=== PATIENT | female | born 1970 | race Caucasian/White ===

== ENCOUNTER → 2018-07-03 | Outpatient (CLI) | payer OTHER ==
--- NOTE | 2018-07-03 11:01 | US ---
EXAMINATION TYPE: US abdomen complete DATE OF EXAM: 07/03/2018 COMPARISON: NONE CLINICAL HISTORY: Swollen Abd R14.0. RLQ pain, hx of breast cancer EXAM MEASUREMENTS: Liver Length: 15.9 cm Gallbladder Wall: 0.2 cm CBD: 0.4 cm CHD: 0.5 cm Spleen: 12.4 cm Right Kidney: 11.0 x 4.2 x 3.9 cm Left Kidney: 1.1 x 5.1 x 6.0 cm Pancreas: Appears echogenic in appearance. Body and tail not visualized due to overlying bowel gas Liver: Echogenic, heterogenous and coarse Gallbladder: wnl Evidence for sonographic Philip's sign: neg CBD: wnl Spleen: Scattered nonshadowing echogenic foci seen Right Kidney: wnl Left Kidney: wnl Upper IVC: Not well visualized Abd Aorta: proximal not visualized due to overlying bowel gas. No AAA visualized in portions seen The liver is coarse and overall echo appearance. The intrahepatic portion of the IVC and proximal abd ominal aorta are within normal limits. There is no evidence of cholelithiasis. Common bile duct is unremarkable. The visualized portions of the pancreas are homogenous. The spleen is unremarkable. Kidneys are symmetric and free of hydronephrosis. No renal lesions are seen. IMPRESSION: 1. Suspect fatty hepatic infiltration versus diffuse hepatocellular disease. Correlate clinically.
--- NOTE | 2018-07-03 11:03 | US ---
EXAMINATION TYPE: US pelvis complete transvag DATE OF EXAM: 07/03/2018 COMPARISON: NONE CLINICAL HISTORY: lower abdominal pain R10.32. RLQ pain. Hx of breast cancer. Patient states she wa s on tamoxifen but isn't anymore-- currently on a different type of medication but doesn't remember w hat TECHNIQUE: Transvaginal (TV) and Transabdominal (TA) . Transabdominal sonographic images of the pel vis were acquired. Transvaginal sonographic images were medically necessary to better assess the fol lowing anatomy: Endometrium Date of LMP: EQUIPMENT ASSOCIATE, G0 EXAM MEASUREMENTS: Uterus: 10.6 x 4.9 x 3.9 cm Endometrial Stripe: 1.9 cm Right Ovary: 3.8 x 2.8 x 2.5 cm 1. Uterus: Anteverted wnl 2. Endometrium: Appears thickened and heterogenous 3. Right Ovary: Cystic appearing lesion seen with septation 3.0 x 2.6 x 2.2 cm 4. Left Ovary: Obscured by overlying bowel gas 5. Bilateral Adnexa: wnl 6. Posterior cul-de-sac: No free fluid Cervix- Appears heterogenous with multiple cystic appearing lesions IMPRESSION: 1. Endometrial thickening is nonspecific. 2. Complex lesion right ovary. Follow-up study in 6 weeks is advised.
== END ==
LOC: RADUSWWP 09:35
DX: N83.9 Noninflammatory disorder of ovary, fallopian tube and broad ligament, unspecified (principal); R93.89 Abnormal findings on diagnostic imaging of other specified body structures; R10.30 Lower abdominal pain, unspecified
CPT/HCPCS: 76700; 76830; 76856

== ENCOUNTER → 2018-07-04 | Outpatient (CLI) | payer BC ==
[2018-07-04 17:39] LABS: Basophils # (A) 0.1 k/uL (0-0.2); Basophils % (A) 1 %; Eosinophils # (A) 0.2 k/uL (0-0.7); Eosinophils % (A) 2 %; HGB 13.6 gm/dL (11.4-16.0); Lymphocytes # (A) 2.4 k/uL (1.0-4.8); Lymphocytes % (A) 27 %; MCH 27.2 pg (25.0-35.0); MCHC 31.6 g/dL (31.0-37.0); MCV 86.2 fL (80.0-100.0); Mean Platelet Volume 6.3; Monocytes # (A) 0.5 k/uL (0-1.0); Monocytes % (A) 6 %; Neutrophils # (A) 5.7 k/uL (1.3-7.7); Neutrophils % (A) 63 %; Platelet Count 324 k/uL (150-450); RBC 4.98 m/uL (3.80-5.40); RDW 14.3 % (11.5-15.5); WBC 9.1 k/uL (3.8-10.6)
[2018-07-04 22:53] LABS: Albumin 4.6 g/dL (3.80-4.90); Anion Gap 8.7 mmol/L (4.00-12.00); Calcium 9.5 mg/dL (8.7-10.3); Carbon Dioxide 27.3 mmol/L (21.6-31.8); Globulin 2.3 g/dL (1.6-3.3); LDL Cholesterol,Calculated 101.2 mg/dL (0.0-131.0); Potassium 4.4 mmol/L (3.5-5.5); Total Bilirubin 0.5 mg/dL (0.2-1.2); Total Protein 6.9 g/dL (6.2-8.2); VLDL Calculation 20.8 mg/dL (5.00-40.00)
[2018-07-04 23:04] LABS: T4, Free (Free Thyroxine) 1.3 ng/dL (0.80-1.80)
== END | disposition home or self-care (01) ==
LOC: LABWHC1 17:02
DX: Z00.00 Encounter for general adult medical examination without abnormal findings (principal)
CPT/HCPCS: 36415; 80053; 80061; 84439; 84443; 85025

== ENCOUNTER → 2018-08-19 | Outpatient (CLI) | payer BC ==
--- NOTE | 2018-08-20 11:51 | US ---
EXAMINATION TYPE: US pelvic complete DATE OF EXAM: 08/19/2018 COMPARISON: US CLINICAL HISTORY: N93.9 Abnormal uterine and vaginal bleeding, unspe. Patient stated had AUB in July TECHNIQUE: Transvaginal (TV) and Transabdominal (TA) . Transabdominal sonographic images of the pel vis were acquired. Transvaginal sonographic images were medically necessary to better assess the fol lowing anatomy: endometrium and ovaries Date of LMP: 07/17/2018 EXAM MEASUREMENTS: Uterus: 8.8 x 4.8 x 4.3 cm Endometrial Stripe: 0.8 cm Right Ovary: 1.7 x 2.1 x 1.8 cm Left Ovary: 1.7 x 1.9 x 2.3 cm 1. Uterus: Anteverted; multiple Nabothian cysts in cervix with largest =1.0 x 0.9 x 0.9cm. 2. Endometrium: thickness wnl for day 33LMP 3. Right Ovary: small follicles 4. Left Ovary: small follicles 5. Bilateral Adnexa: wnl 6. Posterior cul-de-sac: wnl IMPRESSION: 1. Normal pelvic ultrasound
== END | disposition home or self-care (01) ==
LOC: RADUSWWP 16:18
PROVIDERS: ATTEND Physician Assistant Medical
DX: N93.9 Abnormal uterine and vaginal bleeding, unspecified (principal)
CPT/HCPCS: 76830; 76856

== ENCOUNTER → 2018-09-12 | Outpatient (CLI) | payer BC ==
--- NOTE | 2018-09-13 07:49 | XR ---
EXAMINATION TYPE: XR chest 2V DATE OF EXAM: 09/12/2018 COMPARISON: None INDICATION: Z71.3G 43.909 TECHNIQUE: Frontal and lateral views of the chest are obtained. FINDINGS: The heart size is normal. The pulmonary vasculature is normal. Some minimal infiltrate or density is within the right mid lung. Correlate for atelectasis. Early pne umonia could be considered. Other etiologies are not excluded. Follow-up is recommended.. IMPRESSION: 1. Mild density within the right mid lung most likely on the basis of atelectasis. Other etiologies a re not excluded. Follow-up to clearing is recommended.
== END | disposition home or self-care (01) ==
LOC: RADXRMAIN 16:14
PROVIDERS: ATTEND Internal Medicine Hematology & Oncology
DX: G43.909 Migraine, unspecified, not intractable, without status migrainosus (principal); Z71.3 Dietary counseling and surveillance
CPT/HCPCS: 71046

== ENCOUNTER → 2019-04-18 | Outpatient (CLI) | payer OTHER ==
--- NOTE | 2019-04-18 18:28 | BD ---
EXAMINATION TYPE: Axial Bone Density DATE OF EXAM: 04/18/2019 COMPARISON: NONE CLINICAL HISTORY: 49 YR OLD FEMALE....ICD-10 CODE: Z79.890 POST MENOPAUSAL, C50.112 BREAST CANCER Height: 65.4 Weight: 223 FRAX RISK QUESTIONS: Secondary Osteoporosis: YES 3. Menopause before 45: YES RISK FACTORS HISTORY OF: Surgery to LT HIP FOR BIOPSY OF OSTEOMYELITIS SITE When: AT AGE 13 Active: YES Postmenopausal woman: AT AGE 36 Hyperparathyroidism: NO Adrenal Insufficiency: NO MEDICATIONS: Additional Medications: SLEEPING PILL, ANTI-HORMONE FOR BR CA, HX CHEMO AND RADIATION, BILAT MASTECTO MY, Additional History: HX OF BREAST CANCER, EXAM MEASUREMENTS: Bone mineral densitometry was performed using the [employer] System. Bone mineral density as measured about the Lumbar spine is: ----- L1-L4(G/cm2): 1.018 T Score Values are as follows: ----- L1: -0.8 ----- L2: -1.7 ----- L3: -1.2 ----- L4: -1.8 ----- L1-L4: -1.4 Bone mineral density FIRST DEXA SCAN.......BASELINE STUDY Bone mineral density about the R hip (g/cm2): 1.004 T Score values are as follows: -----R Neck: -0.5 -----R Total: 0.0 Bone mineral density FIRST DEXA SCAN......BASELINE STUDY FRAX%s: THERE IS A 2.7% CHANCE FOR A MAJOR OSTEOPOROTIC FX AND A 0.1% FOR HIP.....PROBABILITY FOR F X IN 10 YRS TIME IMPRESSION: Osteopenia (T Score between -2.5 and -1). There is slightly increased risk of fracture and the patient may be considered for treatment. Re-Screen 2-5 years. NOTE: T-SCORE=SD OF THE YOUNG ADULT MEAN.
== END | disposition home or self-care (01) ==
LOC: RADBDWWP 14:05
PROVIDERS: ATTEND Internal Medicine Hematology & Oncology
DX: M85.80 Other specified disorders of bone density and structure, unspecified site (principal); Z79.890 Hormone replacement therapy
CPT/HCPCS: 77080

== ENCOUNTER → 2022-03-13 | Outpatient (CLI) | payer OTHER ==
--- NOTE | 2022-03-14 07:29 | BD ---
EXAMINATION TYPE: Axial Bone Density DATE OF EXAM: 03/13/2022 COMPARISON: Prior DEXA bone scan 2019 CLINICAL HISTORY: 52 years year old Female. ICD-10 CODE: C50.112 Breast cancer Height: 5 FT 5 1/2 IN Weight: 221 FRAX RISK QUESTIONS: Alcohol (3 or more units per day): NO Family History (Parent hip fracture): NO Glucocorticoids (More than 3mos): NO (Ex: prednisone, prednisolone, methylprednisolone, dexamethasone, and hydrocortisone). History of Fracture in Adulthood: YES Secondary Osteoporosis: 1. Type 1 Diabetes: NO 2. Hyperthyroidism: NO 3. Menopause before 45: YES 4. Malnutrition: NO 5. Chronic liver disease: NO Rheumatoid Arthritis: NO Current Tobacco Use: NO RISK FACTORS HISTORY OF: Surgery to Spine/Hip(right/left)/Wrist (right/left): LEFT HIP BX OSTEOMYELITIS When: AGE 13 Family History of Osteoporosis: NO Active: NO Diet low in dairy products/other sources of calcium: NO Postmenopausal woman: YES Take estrogen and/or progesterone medications: NO Lost more than 2 inches in height since high school: NO Frequent falls: YES Poor Health: GOOD Hyperparathyroidism: NO Adrenal Insufficiency: NO MEDICATIONS: Additional Medications: SLEEP AID, BLOOD PRESSURE MEDS, ALLERGY MEDS ,EYE DROPS Additional History: BREAST CANCER 2011, DAVID MASTECTOMY ,CHEMO AND RADIATION , HORMONE ZAIDA FOR TOT AL OF 10 YEARS EXAM MEASUREMENTS: Bone mineral densitometry was performed using the [employer] System. Bone mineral density as measured about the Lumbar spine is: ----- L1-L4(G/cm2): 0.994 T Score Values are as follows: ----- L1: -2.0 ----- L2: -1.3 ----- L3: -1.7 ----- L4: -1.5 ----- L1-L4: -1.5 Bone mineral density has: INCREASED 0.8 % since study of: 2019 Bone mineral density about the R hip (g/cm2): 0.888 Bone mineral density about the L hip (g/cm2): 0.933 T Score values are as follows: -----R Neck: -1.1 -----L Neck: -0.8 -----R Total: -0.6 -----L Total: 0.0 Bone mineral density has: NO CHANGE % since study of: 2020 FRAX%s: The graph provided illustrates a 2.4 % chance for a major osteoporotic fx and a 0.2 % chance for the hips probability for fx in 10 years time. IMPRESSION: Osteopenia (T Score between -2.5 and -1) remains present. There is slightly increased risk of fracture and the patient may be considered for treatment. Re-Screen 2-5 years. NOTE: T-SCORE=SD OF THE YOUNG ADULT MEAN.
== END | disposition home or self-care (01) ==
LOC: RADBDWWP 07:48
PROVIDERS: ATTEND Internal Medicine Hematology & Oncology
DX: C50.112 Malignant neoplasm of central portion of left female breast (principal); M85.89 Other specified disorders of bone density and structure, multiple sites; G43.909 Migraine, unspecified, not intractable, without status migrainosus; Z71.3 Dietary counseling and surveillance
CPT/HCPCS: 77080

== ENCOUNTER → 2022-06-27 | Outpatient (CLI) | payer OTHER ==
--- NOTE | 2022-06-27 12:35 | CT ---
EXAMINATION TYPE: CT chest w con CT DLP: 562.2 mGycm, Automated exposure control for dose reduction was used. DATE OF EXAM: 06/27/2022 11:49 AM COMPARISON: Chest radiograph from 09/13/2018. CLINICAL INDICATION:Female, 52 years old with history of R0602; Trouble breathing, history of bilater al mastectomy-breast cancer TECHNIQUE: Multiple axial images were obtained through the chest. Sagittal and coronal reformats were created for review. Contrast used:70 mL of Isovue 300 with IV Contrast Oral contrast used: none. FINDINGS: LUNGS/ PLEURA: Right lower lobe calcified granulomas. No evidence focal consolidation, pneumothorax o r pleural effusion. No suspicious pulmonary nodules. AIRWAY: Patent and unremarkable. HEART: Size within normal limits. MEDIASTINUM: No gross evidence of adenopathy. Partially calcified lymph nodes in the mediastinum. VASCULATURE: No aortic aneurysm. MUSCULOSKELETAL: No acute osseous abnormalities SOFT TISSUES/LYMPH NODES: Left breast implant which appears grossly intact with capsular calcificatio ns. Postsurgical changes to the right breast. LOWER NECK: UPPER ABDOMEN: Diffuse low-attenuation to the liver parenchyma. Scattered calcified granulomas. IMPRESSION: 1. Granulomatous disease without evidence for new or suspicious pulmonary nodule. 2. No acute thoracic process.
== END | disposition home or self-care (01) ==
LOC: RADCTMAIN 11:05
DX: D71 Functional disorders of polymorphonuclear neutrophils (principal); Z90.13 Acquired absence of bilateral breasts and nipples; R06.02 Shortness of breath; Z85.3 Personal history of malignant neoplasm of breast
CPT/HCPCS: 71260; Q9967

== ENCOUNTER → 2022-11-01 | Outpatient (CLI) | payer OTHER ==
--- NOTE | 2022-11-01 10:39 | US ---
EXAMINATION TYPE: US abdomen complete DATE OF EXAM: 11/01/2022 COMPARISON: NONE CLINICAL INDICATION: Female, 52 years old with history of R10.10; pain TECHNIQUE: Multiple sonographic images of the abdomen are obtained. FINDINGS: EXAM MEASUREMENTS: Liver Length: 16.8 cm Gallbladder Wall: .2 cm CBD: .6 cm Spleen: 13.1 cm Right Kidney: 11.5 x 4.3 x 5.4 cm Left Kidney: 12.0 x 4.9 x 4.1 cm CLASSIFICATION ANALYST NOTES: Pancreas: Obscured by bowel gas Liver: Increased attenuation Gallbladder: No stones seen Evidence for sonographic Philip's sign: No CBD: wnl Spleen: Granulomas visualized. Right Kidney: No hydronephrosis or masses seen Left Kidney: No hydronephrosis or masses seen Upper IVC: wnl Abd Aorta: wnl There is moderate fatty infiltration to the liver. Hepatomegaly is present. IMPRESSION: 1. Hepatomegaly with moderate fatty infiltration of the liver
== END | disposition home or self-care (01) ==
LOC: RADUSWWP 08:50
DX: K76.0 Fatty (change of) liver, not elsewhere classified (principal); R16.0 Hepatomegaly, not elsewhere classified; R10.10 Upper abdominal pain, unspecified
CPT/HCPCS: 76700

== ENCOUNTER → 2023-02-27 | Outpatient (CLI) | payer OTHER ==
--- NOTE | 2023-02-27 11:24 | CA ---
Transthoracic Echo Report Name: Angeline Mcmanus Age: 52 Gender: F : 1970 Exam Date: 02/27/2023 08:33 Exam Location: [place] [facility] Ht (in): 65 Wt (lb): 226 Ordering Physician: [facility], Clinic Attending/Referring Phys: [employer] Maru Hudson RDCS Procedure CPT: Indications: R07.80 CHEST PAIN Cardiac Hx: Technical Quality: Fair Contrast 1: Total Dose (mL): Contrast 2: Total Dose (mL): MEASUREMENTS (Male / Female) Normal Values 2D ECHO LV Diastolic Diameter PLAX 3.7 cm 4.2 - 5.9 / 3.9 - 5.3 cm LV Systolic Diameter PLAX 2.2 cm IVS Diastolic Thickness 1.1 cm 0.6 - 1.0 / 0.6 - 0.9 cm LVPW Diastolic Thickness 1.2 cm 0.6 - 1.0 / 0.6 - 0.9 cm LV Relative Wall Thickness 0.6 RV Internal Dim ED PLAX 3.7 cm LA Volume 56.2 cm??? 18 - 58 / 22 - 52 cm??? LA Volume Index 25.4 cm???/m??? 16 - 28 cm???/m??? M-MODE Aortic Root Diameter MM 2.6 cm LA Systolic Diameter MM 3.8 cm LA Ao Ratio MM 1.4 AV Cusp Separation MM 1.9 cm DOPPLER AV Peak Velocity 144.3 cm/s AV Peak Gradient 8.3 mmHg AV Mean Velocity 102.2 cm/s AV Mean Gradient 4.7 mmHg AV Velocity Time Integral 31.5 cm LVOT Peak Velocity 102.9 cm/s LVOT Peak Gradient 4.2 mmHg LVOT Velocity Time Integral 21.9 cm MV Area PHT 3.3 cm??? Mitral E Point Velocity 89.2 cm/s Mitral A Point Velocity 67.7 cm/s Mitral E to A Ratio 1.3 MV Deceleration Time 227.6 ms MV E' Velocity 8.1 cm/s Mitral E to MV E' Ratio 11.0 TR Peak Velocity 214.9 cm/s TR Peak Gradient 18.5 mmHg Right Ventricular Systolic Press 22.7 mmHg FINDINGS Left Ventricle Mildly increased left ventricular wall thickness. Left ventricular cavity size normal. Normal left ventricular systolic function with no obvious regional wall motion abnormalities. Left ventricular ejection fraction is estimated at 55-60 %. Right Ventricle Mild right ventricular dilatation. Right ventricular systolic pressure within normal limits. Right Atrium Normal right atrial size. Left Atrium Mildly increased left atrial volume. Mitral Valve Structurally normal mitral valve. Mild mitral regurgitation. Aortic Valve Trileaflet aortic valve. No aortic valve stenosis or regurgitation. Tricuspid Valve Structurally normal tricuspid valve. Mild tricuspid regurgitation. Pulmonic Valve Structurally normal pulmonic valve. Trace pulmonic regurgitation. Pericardium No pericardial effusion. Aorta Normal size aortic root and proximal ascending aorta. CONCLUSIONS Normal LV size and systolic function. Mild mitral and tricuspid regurgitation. No pericardial effusion no pulmonary hypertension Previewed by: Dr. Danii Kruse MD (Electronically Signed) Final Date: 27 February 2023 11:23
--- NOTE | 2023-02-27 11:56 | CA ---
Exercise Nuclear Stress Test Report Name: Angeline Mcmanus Exam Date: 02/27/2023 11:02 Exam Location: [place] [facility] Ht (in): 65 Wt (lb): 226 BSA: 2.08 Ordering Phys: [facility], Clinic Referring Phys: [facility],, Technologist: NATHANIEL,, Age: 52 Gender: F : 1970 Procedure CPT: Indications: R07.80 CHEST PAIN ICD-10 Codes: Patient History: Chest Pain Medications: Meds past 24 hrs: Pretest Chest Pain: STRESS TEST Shadi Protocol Exercise Duration (min:sec): 07:[address] Depressions (mm): Angina Score: Duarte Score: Resting HR (bpm): 51 Peak HR (bpm): 145 Resting BP (mmHg): 116 / 71 Peak BP (mmHg): 162 / 79 MPHR: 170 Target HR: 145 % MPHR: 85 METS: 9.1 Total Dose: Peak Dose: Atropine: Double Product: 52221 BP Response: Stress Termination: Reached target heart rate Stress Symptoms: Dizziness at peak exercise. Stress Summary: ECG ANALYSIS Resting ECG: Stress ECG: CONCLUSIONS Baseline EKG revealed a normal sinus rhythm without significant ST-T changes. Patient walked on a standard Shadi protocol for a total duration of 7 minutes 44 seconds and achieved a maximum heart rate of 145 bpm. Resting heart rate was 51 bpm. Resting blood pressure was 116/71 and peak blood pressure was 162/79. Patient did not have any angina. She complained of some dizziness at the end. By EKG criteria this is a negative stress test without any evidence of ischemic changes. No anginal symptoms. Negative stress test with fair exercise capacity area the nuclear scan results which are more pertinent will be reported by the radiologist Dr. Danii Kruse MD (Electronically Signed) Final Date: 27 February 2023 11:55
--- NOTE | 2023-02-27 13:17 | NM ---
EXAMINATION TYPE: NM stress cardiolite complete DATE OF EXAM: 02/27/2023 COMPARISON: NONE CLINICAL INDICATION: Female, 52 years old with history of R07.80 CHEST PAIN; TECHNIQUE: After the intravenous administration of 10.4 mCi Tc 99m Sestamibi - Rest images obtained 100 minutes post injection. The patient exercised using a BOBBI protocol and 1 minute prior to peak exercise was injected with 25.8 mCi Tc 99m Sestamibi - Stress images obtained 30 minutes post inject ion. FINDINGS: Targeted heart rate was achieved during performance of the study. Review of stress and rest SPECT anders ges demonstrates no distinct perfusion abnormality. Gated analysis shows normal wall motion with an estimated left ventricular ejection fraction of 60 %. IMPRESSION: No scintigraphic evidence for reversible ischemia
== END | disposition home or self-care (01) ==
LOC: RADNMMAIN 07:53
DX: I08.1 Rheumatic disorders of both mitral and tricuspid valves (principal); R06.00 Dyspnea, unspecified; R07.89 Other chest pain
CPT/HCPCS: 93017; 93306; 78452; A9500

== ENCOUNTER → 2023-05-15 | Outpatient (CLI) | payer OTHER ==
--- NOTE | 2023-05-15 17:02 | P.SLEEP ---
History of Present Illness H&P Date: 05/15/23 This is a 53-year-old female patient with known history of chronic insomnia. The patient has been treated through psychiatry department and [facility]. Over the years, the patient has been maintained on Ambien 10 mg and this medication has helped her with sleep induction and maintenance. She has done extremely well with the patient is able to fall asleep without any major issues. However, she has been having some ongoing difficulties waking up not rested and feeling sleepy and tired during the day. Her current Merom score is at 5. For that reason, the patient was referred to me for sleep apnea evaluation as the patient has history of snoring and she carries a body mass index of 38.0. She has a . She has served in the [employer] in the [employer] and she was discharged back in 2013. 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 She has not been sure if she quits breathing at night. She sleeps alone. However she admits that she does not feel rested when she gets up in the morning. No grinding of the teeth. Denies waking up choking and gasping for air. No restlessness in lower extremities. No significant anxiety or depression or night terrors. The patient has been going to bed at around 10 PM and she gets up between 6 and 6:30 AM in the morning during weekdays. On weekends, she gets out of bed at around 7:30 AM. She drinks 1 to 2 cup of coffee in the morning. No alcoholism. No substance abuse. No head trauma. No history of any motor vehicle accidents because of feeling drowsy or sleepy. She sleeps on her side. She reads books which calms her down and she consider this to be sleep promoting. Past medical history includes chronic insomnia, hypertension, obesity, osteoarthritis, median nerve injury, tinnitus Past surgical history includes bilateral mastectomies and insertion of removal of breast implants Medication includes Ambien 10 mg at nighttime and atenolol 75 mg p.o. daily Drug allergies none known Social history no history of smoking, alcohol consumption or substance abuse Family history is negative for sleep breathing disorder. Hypertension runs in her family also breast cancer. Review of systems. 14 point review of system was done. Essentially negative other than things mentioned above in history of present illness. The patient has been able to maintain a weight of 230 pounds over the past 5 to 10 years at least. No history of any heartburn overnight. No shortness of breath or chest pain. No restlessness in lower extremities. No sleepwalking or sleep talking. No grinding. No nocturia. No anxiety or depression BP is 129/88 with a pulse of 80 respiration of 18 with a temperature 98.2 and a pulse ox of 97% on room air. Height is 5 5. Weight is 230 pounds and a body mass index is 38 with an Merom score of 5 General appearance the patient is calm and comfortable no acute distress. The patient has a Mallampati class IV. No overbite. The patient appeared well nourished and normally developed. Vital signs as documented. Head exam is unremarkable. No scleral icterus or corneal arcus noted. Neck is without jugular venous distension, thyromegaly, or carotid bruits. Carotid upstrokes are brisk bilaterally. Lungs are clear to auscultation and percussion. Cardiac exam reveals the PMI to be normally sized and situated. Rhythm is regular. First and second heart sounds normal. No murmurs, rubs or gallops. Abdominal exam reveals normal bowel sounds, no masses, no organomegaly and no aortic enlargement. Extremities are nonedematous and both femoral and pedal pulses are normal. Examination of the skin revealed no evidence of significant rashes, suspicious appearing nevi or other concerning lesions. Neurologically, the patient is awake and alert and the patient does not have any focal neurological deficit. Cranial nerves are essentially intact. Assessment Chronic insomnia adequately managed with Ambien 10 mg at bedtime. The patient is also implementing sleep restriction and good sleep hygiene measures to improve her chronic insomnia. Feeling sleepy and unrested following a good 6 hours of sleep. Mild degree of hypersomnia. Rule out underlying obstructive sleep apnea as the patient has history of snoring. Obesity with a BMI of 38.0 Hypertension Osteoarthritis History of median nerve injury History of tinnitus Plan Continue Ambien 10 mg at bedtime. Implement good sleep hygiene measures. Maintain regular sleep schedule. Encourage weight loss. Proceed with a home sleep study to screen this patient for the possibility of obstructive sleep apnea and decide if further treatment is needed. Will continue to follow. Sleep Note - Sleep Note Sleep Note: Temperature: Pulse Rate: Respiratory Rate: Blood Pressure: SpO2: Height: Weight: BMI: Neck Circumference:
== END ==
LOC: 3 N SLEEP 15:41
PROVIDERS: ATTEND Internal Medicine Critical Care Medicine
DX: F51.04 Psychophysiologic insomnia (principal); G47.10 Hypersomnia, unspecified; E66.9 Obesity, unspecified; I10 Essential (primary) hypertension; M19.90 Unspecified osteoarthritis, unspecified site; R06.83 Snoring; Z68.38 Body mass index [BMI] 38.0-38.9, adult; Z87.828 Personal history of other (healed) physical injury and trauma; Z86.69 Personal history of other diseases of the nervous system and sense organs
CPT/HCPCS: 99211

== ENCOUNTER 2023-06-19 07:19 | Day surgery (SDC) | payer OTHER ==
[2023-06-18 09:09] VITALS: BMI 36.4
[2023-06-19 07:57] VITALS: RESP 18; TEMP 97.1
[2023-06-19] MEDS: LIDOCAINE 1% (10MG/ML) FOR IV START INTRADERMA PRN (08:03)
[2023-06-19] MEDS: LACTATED RINGERS 1,000 ML IV SCH (08:03)
[2023-06-19] MEDS ORDERED: fentaNYL (PF) 50 MCG/ML 2 ML AMP ONE (08:17)
[2023-06-19] MEDS ORDERED: PROPOFOL 10 MG/ML 20 ML VIAL IV ONE (08:17)
[2023-06-19] MEDS ORDERED: MIDAZOLAM 2 MG/2 ML VIAL ONE (08:17)
--- NOTE | 2023-06-19 08:32 | P.PCN ---
Date of Procedure: 06/19/23 Procedure(s) Performed: BRIEF HISTORY: Patient is a 53-year-old pleasant white female scheduled for an elective colonoscopy as a part of screening for colon cancer. PROCEDURE PERFORMED: Colonoscopy. PREOPERATIVE DIAGNOSIS: Screening for colon cancer. IV sedation per Anesthesia. PROCEDURE: After informed consent was obtained, the patient, was brought into the endoscopy unit. IV sedation was administered by Anesthesia under continuous monitoring. Digital rectal examination was normal. Initially the Olympus CF-160 flexible video colonoscope was then inserted in the rectum, gradually advanced into the cecum without any difficulty. Careful examination was performed as the scope was gradually being withdrawn. Ileocecal valve and the appendiceal orifice were visualized and appeared normal. Prep was excellent. Mucosa of the cecum, ascending colon, transverse colon, descending colon, sigmoid colon, and rectum appeared normal. Scattered sigmoid diverticulosis. Retroflexion was performed in the rectum and no lesions were seen. The patient tolerated the procedure well. IMPRESSION: Normal-appearing colon from rectum to cecum with no evidence of colon rectal neoplasia . Scattered sigmoid diverticulosis. RECOMMENDATIONS: Findings of this examination were discussed with the patient as well as a family. She was advised to have a repeat screening colonoscopy in 10 years..
[2023-06-19 09:11] VITALS: BP 132/74; PULSE 78
== END 2023-06-19 09:11 | disposition home or self-care (01) ==
LOC: ORWHC2ENDO 07:19
PROVIDERS: ATTEND Internal Medicine Gastroenterology
DX: Z12.11 Encounter for screening for malignant neoplasm of colon (principal); K57.30 Diverticulosis of large intestine without perforation or abscess without bleeding; I10 Essential (primary) hypertension; Z79.899 Other long term (current) drug therapy
CPT/HCPCS: 45378; J2250; J3010; J2704

== ENCOUNTER → 2023-12-14 | Outpatient (CLI) | payer OTHER ==
[2023-12-14 15:48] LABS: ALT 27 U/L (8-44); AST 29 U/L (13-35); Albumin 4.6 g/dL (3.8-4.9); Albumin/Globulin Ratio 1.77 Ratio (1.60-3.17); Alkaline Phosphatase 63 U/L (41-126); Blood Urea Nitrogen 14.8 mg/dL (9.0-27.0); Calcium 9.7 mg/dL (8.7-10.3); Carbon Dioxide 25.3 mmol/L (21.6-31.8); Chloride 104 mmol/L (96-109); Globulin 2.6 g/dL (1.6-3.3); Glucose 110 mg/dL (70-110); Potassium 4.7 mmol/L (3.5-5.5); Sodium 140 mmol/L (135-145); Total Bilirubin 0.4 mg/dL (0.3-1.2); Total Protein 7.2 g/dL (6.2-8.2)
[2023-12-14 16:26] LABS: Basophils # (A) 0.08 X 10*3/uL (0.00-0.10); Basophils % (A) 1.1 %; Eosinophils # (A) 0.18 X 10*3/uL (0.04-0.35); Eosinophils % (A) 2.5 %; HCT 44.2 % (37.2-46.3); HGB 14.5 g/dL (12.0-15.0); Lymphocytes # (A) 1.99 X 10*3/uL (0.90-5.00); MCH 28.4 pg (27.0-32.0); MCHC 32.8 g/dL (32.0-37.0); MCV 86.7 FL (80.0-97.0); Mean Platelet Volume 9.3 FL (9.5-12.2); Monocytes # (A) 0.56 X 10*3/uL (0.20-1.00); Monocytes % (A) 7.9 %; NRBC Per 100 WBC 0 X 10*3/uL (0.00-0.01); Neutrophils # (A) 4.27 X 10*3/uL (1.80-7.70); Neutrophils % (A) 60.2 %; Platelet Count 289 X 10*3/uL (140-440)
== END | disposition home or self-care (01) ==
LOC: LABWHC1 10:19
PROVIDERS: ATTEND Nurse Practitioner Family
DX: K76.0 Fatty (change of) liver, not elsewhere classified (principal)
CPT/HCPCS: 36415; 80053; 85025

== ENCOUNTER → 2024-03-18 | Outpatient (CLI) | payer OTHER ==
--- NOTE | 2024-03-18 15:19 | BD ---
EXAMINATION TYPE: Axial Bone Density DATE OF EXAM: 03/18/2024 CLINICAL HISTORY: 54 years old Female. ICD-10 CODE: C50.112 CARCINOMA CENTRAL PORTION OF BREAST , Ad ditional History: Height: 5 ft 6 in Weight: 225 FRAX RISK QUESTIONS: Alcohol (3 or more units per day): no Family History (Parent hip fracture): no Glucocorticoids (More than 3mos): yes (Ex: prednisone, prednisolone, methylprednisolone, dexamethasone, and hydrocortisone). History of Fracture in Adulthood: yes Secondary Osteoporosis: 1. Type 1 Diabetes: no 2. Hyperthyroidism: no 3. Menopause before 45: yes 4. Malnutrition: no 5. Chronic liver disease: no Rheumatoid Arthritis: yes Current Tobacco Use: no RISK FACTORS HISTORY OF: Surgery to Spine/Hip(right/left)/Wrist (right/left): bx on left hip as a child MEDICATIONS: Thyroid Medications: none Osteoporosis Medications: none EXAM MEASUREMENTS: Bone mineral densitometry was performed using the [employer] System. Bone mineral density as measured about the Lumbar spine is: ----- L1-L4(G/cm2): 0.998 T Score Values are as follows: ----- L1: -1.4 ----- L2: -1.7 ----- L3: -1.4 ----- L4: -1.7 ----- L1-L4: -1.5 Z Score Values are as follows: ----- L1: -2.0 ----- L2: -2.4 ----- L3: -2.0 ----- L4: -2.3 ----- L1-L4: -2.1 Bone mineral density has: increased 0.4 % since study of: 2021 Bone mineral density about the R hip (g/cm2): 0.921 Bone mineral density about the L hip (g/cm2): 0.950 T Score values are as follows: -----R Neck: -0.8 -----L Neck: -0.6 -----R Total: -0.4 -----L Total: 0.2 Z Score values are as follows: -----R Neck: -0.7 -----L Neck: -0.5 -----R Total: -0.7 -----L Total: -0.1 Bone mineral density has: increased 2.4 % since study of: 2021 FRAX%s: The graph provided illustrates a 4.1 % chance for a major osteoporotic fx and a 0.2 % chance for the hips probability for fx in 10 years time. IMPRESSION: Osteopenia (T Score between -2.5 and -1). There is slightly increased risk of fracture and the patient may be considered for treatment. Re-Screen 2-5 years. NOTE: T-SCORE=SD OF THE YOUNG ADULT MEAN. [facility], , 03/18/2024 3:16 PM
== END | disposition home or self-care (01) ==
LOC: RADBDWWP 11:03
PROVIDERS: ATTEND Internal Medicine Hematology & Oncology
DX: C50.112 Malignant neoplasm of central portion of left female breast (principal); G43.909 Migraine, unspecified, not intractable, without status migrainosus; M85.89 Other specified disorders of bone density and structure, multiple sites; Z71.3 Dietary counseling and surveillance
CPT/HCPCS: 77080